=== PATIENT | female | born 1980 | race Caucasian/White ===

== ENCOUNTER 2018-10-30 14:35 | Emergency (ER) | payer OTHER ==
[~2018-10-30] VITALS: Ht 162.6 cm; Wt 103.4 kg
[2018-10-30 14:41] VITALS: Ht 162.6 cm; Wt 103.4 kg
[2018-10-30] MEDS ORDERED: ONDANSETRON 4 MG INJ IV STA (18:25)
[2018-10-30] MEDS ORDERED: BELLADONNA/PHENOBARBITAL TAB PO STA (18:25)
[2018-10-30] MEDS ORDERED: LIDOCAINE/MYLANTA 40 ML BTL PO STA (18:25)
[2018-10-30] MEDS ORDERED: SOD CHLORIDE 0.9% 1,000 ML IV STA (18:25)
--- NOTE | 2018-10-30 18:29 | ERD ---
ER Documentation Chief Complaint Chief Complaint c/o dizziness and increased thirst. "sugar is high". BS here: 474mg/dl HPI 38-year-old woman with multiple complaints including dizziness, palpitations, nausea, epigastric pain, lightheadedness all occurring at work today near lunchtime. She states she ate lunch and symptoms began after eating she had forgotten to take her morning and afternoon diabetes medications. She checked h er blood sugar 1 symptoms occurred and it read as "high". Her epigastric pain is described as a fullness is nonradiating and nonexertional. Patient denies chest pain or shortness of breath, no loss of consciousness, no dysuria, no fevers or chills, no vomiting or diarrhea. ROS All systems reviewed and are negative except as per history of present illness. Medications Home Meds Reported Medications Gabapentin* (Gabapentin*) 300 Mg Capsule, 300 MG PO BID, #60 CAP 10/30/18 Metformin Hcl* (Metformin Hcl*) 1,000 Mg Tablet, 1000 MG PO WITH BREAKFAST DINNE, #60 TAB 10/30/18 Levothyroxine Sodium* (Levothyroxine Sodium*) 300 Mcg Tablet, 300 MCG PO BEFORE BREAKFAST, #30 TAB 10/30/18 Allergies Allergies: Coded Allergies: No Known Allergy (Unverified , 10/30/18) PMhx/Soc Diabetes mellitus, obesity, hypothyroidism History of Surgery: Yes (PLANTER FACIITIS, ) Hx Miscellaneous Medical Probl: Yes (HYPOTHYROID , NEUROPATHY , DM 2) Hx Alcohol Use: No Hx Substance Use: No Hx Tobacco Use: No Smoking Status: Never smoker FmHx Family History: diabetes Physical Exam Vitals Vital Signs Date Temp Pulse Resp B/P (MAP) Pulse Ox O2 O2 Flow FiO2 Time Delivery Rate 10/30/18 97.7 85 14 110/64 100 Room Air 20:08 (79) 10/30/18 97.7 88 17 137/94 100 Room Air 18:37 (108) 10/30/18 98.6 87 17 130/90 100 Room Air 18:25 (103) 10/30/18 130/83 17:06 (99) 10/30/18 98.4 94 20 172/107 97 14:41 (128) Physical Exam GENERAL: Well-developed, well-nourished, well-hydrated, in no apparent distress, looks nontoxic in appearance HEENT: Moist mucous membranes, pink conjunctiva, no cervical spine tenderness or step-off deformities, positive goiter consistent with history NEURO: Alert and oriented 3, cranial nerves II through XII intact bilaterally, pupils equal round reactive to light, no focal deficits or facial asymmetry, sensation intact distally Strength 5/5 in upper and lower extremities bilater ally CARDIAC: Regular rate and rhythm, no murmurs rubs or gallops LUNGS: Clear bilaterally no wheezing crackles or stridor ABDOMEN: Soft nontender, no guarding, no rigidity, no rebound, no psoas sign no obturator sign. SKIN: Warm and dry to touch, no abrasions, contusions, or hematomas, no lacerati ons, no ecchymosis, no target lesions, and without ulcers EXTREMITIES: No clubbing cyanosis or edema, calves are bilaterally symmetrical, no Homans sign, no popliteal cord sign. Distal pulses equal and bilateral PSYCH: Normal affect without agitation or irritability Result Diagram: 10/30/18183710/30/181837 Results 24 hrs Laboratory Tests Test 10/30/18 17:06 10/30/18 18:09 10/30/18 18:38 10/30/18 18:45 Bedside Glucose 385 mg/dL 331 mg/dL 309 mg/dL White Blood Count 11.8 10^3/ul Red Blood Count 5.30 10^6/ul Hemoglobin 15.3 g/dl Hematocrit 44.7 % Mean Corpuscular 84.3 fl Volume Mean Corpuscular 28.9 pg Hemoglobin Mean Corpuscular 34.2 g/dl Hemoglobin Concent Red Cell 12.4 % Distribution Width Platelet Count 284 10^3/UL Mean Platelet 10.6 fl Volume Immature 0.500 % Granulocytes % Neutrophils % 42.6 % Lymphocytes % 44.3 % Monocytes % 6.7 % Eosinophils % 5.2 % Basophils % 0.7 % Nucleated Red 0.0 /100WBC Blood Cells % Immature 0.060 10^3/ul Granulocytes # Neutrophils # 5.0 10^3/ul Lymphocytes # 5.2 10^3/ul Monocytes # 0.8 10^3/ul Eosinophils # 0.6 10^3/ul Basophils # 0.1 10^3/ul Nucleated Red 0.0 10^3/ul Blood Cells # Urine Color YELLOW Urine Clarity SLIGHTLY CLOUDY Urine pH 5.0 Urine Specific 1.025 [place] Urine Ketones TRACE mg/dL Urine Nitrite NEGATIVE mg/dL Urine Bilirubin NEGATIVE mg/dL Urine Urobilinogen NEGATIVE mg/dL Urine Leukocyte NEGATIVE Jayden/ul Esterase Urine Microscopic 0 /HPF RBC Urine Microscopic 1 /HPF WBC Urine Squamous FEW /HPF Epithelial Cells Urine Hemoglobin 1+ mg/dL Urine Glucose 3+ mg/dL Urine Total NEGATIVE mg/dl Protein Sodium Level 137 mmol/L Potassium Level 3.6 mmol/L Chloride Level 98 mmol/L Carbon Dioxide 25 mmol/L Level Anion Gap 14 Blood Urea 11 mg/dl Nitrogen Creatinine 0.83 mg/dl Est Glomerular > 60 mL/min Filtrat Rate mL/min Glucose Level 361 mg/dl Calcium Level 10.3 mg/dl Total Bilirubin 0.2 mg/dl Direct Bilirubin 0.00 mg/dl Indirect Bilirubin 0.2 mg/dl Aspartate Amino 57 IU/L Transf (AST/SGOT) Alanine 63 IU/L Aminotransferase ( ALT/SGPT) Alkaline 136 IU/L Phosphatase Troponin I < 0.012 ng/ml Total Protein 8.3 g/dl Albumin 4.6 g/dl Globulin 3.70 g/dl Albumin/Globulin 1.24 Ratio Lipase 173 U/L Test 10/30/18 20:04 Bedside Glucose 281 mg/dL Current Medications Medications Dose Sig/Lois Start Time Status Last (Trade) Ordered Route PRN Stop Time Admin Dose Reason Admin Sodium 1,000 ml @ Q1H STAT 10/30/18 DC 10/30/18 Chloride 1,000 mls/hr IV 18:25 18:57 10/30/18 19:24 Ondansetron 4 mg ONCE STAT 10/30/18 DC 10/30/18 HCl (Zofran IV 18:25 18:57 Inj) 10/30/18 18:26 40 ml ONCE STAT 10/30/18 DC 10/30/18 Miscellaneous PO 18:25 18:57 Medication 10/30/18 18:26 (Gi Cocktail (2)) Belladonna/ 2 tab ONCE STAT 10/30/18 DC 10/30/18 Phenobarbital PO 18:25 18:57 () 10/30/18 18:26 Insulin 8 unit ONCE ONCE 10/30/18 DC 10/30/18 Human SC 18:30 19:03 Lispro 10/30/18 18:31 (Humalog) Procedures/MDM IV line was established patient was placed on school lunch monitor rhythm strip revealed a sinus rhythm at about 80 bpm with upright P and T waves. Patient was afebrile I administered 1 L normal saline IV, GI cocktail, Zofran 4 mg IV, lispro insulin 8 units subcutaneous injection x1 CBC was normal, electrolytes revealed mild hyperglycemia, liver function tests normal, troponin negative, urinalysis was negative for infection EKG performed, read by me: 87 bpm, normal sinus rhythm, normal axis, no acute ST segment changes, narrow QRS complex, with good R-wave progression in precordial leads. Patient's blood sugar improved and vital signs remained normal. She is asym ptomatic now feels much better. Differential diagnoses considered, included but not limited to acute coronary syndrome, pulmonary embolism, aortic dissection, abdominal aortic aneurysm, sepsis, stroke, meningitis, encephalitis, pneumonia, appendicitis, cholecystitis, bowel obstruction, pyelonephritis, nephrolithiasis, cystitis, as well as metabolic, hematologic, and electrolyte abnormalities. As well as abscess, cellulitis, fractures, and dislocations. Patient feels much better at this time, and vital signs are normal, symptoms have improved. I did give strict instructions to return to the ED if symptoms continue or worsen, patient will otherwise follow-up with primary care physician. Patient understood instructions and agreed to plan. Disclaimer: Inadvertent spelling and grammatical errors are likely due to EHR/dictation software use and do not reflect on the overall quality of patient care. Also, please note that the electronic time recorded on this note does not necessarily reflect the actual time of the patient encounter. Departure Diagnosis: Primary Impression: Hyperglycemia Additional Impressions: Dizziness Noncompliance with medication regimen Condition: Good ISAAC GONZALEZ MD Oct 30, 2018 18:29
[2018-10-30] MEDS ORDERED: INSULIN LISPRO 100 UNIT/ML VIAL SC ONE (18:30)
[2018-10-30] MEDS ORDERED: METF100010 PO (18:35)
[2018-10-30] MEDS ORDERED: LEVO300T5 PO (18:35)
[2018-10-30] MEDS ORDERED: GABA300C16 PO (18:35)
[2018-10-30 20:08] VITALS: BP 110/64; PULSE 85; RESP 14
== END 2018-10-30 20:19 | disposition home or self-care (01) ==
LOC: E/R 14:35
DX: E11.65 Type 2 diabetes mellitus with hyperglycemia (principal); E03.9 Hypothyroidism, unspecified; E66.9 Obesity, unspecified; Z68.39 Body mass index [BMI] 39.0-39.9, adult; Z91.14 Patient's other noncompliance with medication regimen
CPT/HCPCS: 80053; 81001; 82962; 83690; 84484; 85025; 93005; 96372; 96374; J1815; J2405; J7030; Z7502; Z7610